=== PATIENT | female | born 2005 | race Two or more races ===

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

== ENCOUNTER 2025-01-06 10:14 | Emergency (ER) | payer OTHER ==
[~2025-01-06] VITALS: Ht 152.4 cm; Wt 68.0 kg
[2025-01-06 10:21] VITALS: BP 113/72; TEMP 98.3
[2025-01-06] MEDS ORDERED: LIDOCAINE 1% INJ 50 ML MDV IJ ONE (13:11)
[2025-01-06] MEDS: LIDOCAINE HCL/PF 1% 30 ML VIAL TP ONE (13:29)
[2025-01-06 14:35] VITALS: O2SAT 98
== END 2025-01-06 14:36 | disposition home or self-care (01) ==
LOC: ER 10:46
DX: S61.217A Laceration without foreign body of left little finger without damage to nail, initial encounter (principal); Z88.6 Allergy status to analgesic agent; Z79.52 Long term (current) use of systemic steroids; W27.4XXA Contact with kitchen utensil, initial encounter; Y93.89 Activity, other specified; Y92.89 Other specified places as the place of occurrence of the external cause; Y99.8 Other external cause status
CPT/HCPCS: 12002; 73130; 99283; J3490